=== PATIENT | male | born 1980 | race Hispanic/Latino ===

== ENCOUNTER 2025-08-22 10:30 | Emergency (ER) | payer OTHER ==
[~2025-08-22] VITALS: Ht 182.9 cm; Wt 123.9 kg
[2025-08-22] MEDS: CLINDAMYCIN IVPB 600MG/50ML 50 ML IV STA (11:09)
[2025-08-22 11:16] LABS: IMMATURE GRANULOCYTE ABSOLUTE 0.05 K/uL (0-1); NUCLEATED RED BLOOD CELLS 0.0 % (0.0-0.19); PLATELET COUNT (AUTO) 298 K/uL (130-400); RED BLOOD CELL COUNT(AUTO) 5.27 MIL/uL (4.50-6.20); RED CELL DISTRIBUTION WIDTH 12.7 % (11.0-15.5); WHITE BLOOD COUNT (AUTO) 10.9 K/uL (4.8-10.8)
[2025-08-22 11:30] LABS: CREATININE 0.8 mg/dL (0.5-1.3); GLOMERULAR FILTR. RATE CALC 111.0 mL/min (>90); SODIUM SERUM 131.0 mmol/L (136-145); UREA NITROGEN, BLOOD 14.0 mg/dL (7-18)
[2025-08-22 12:09] LABS: GLUCOSE,RANDOM 427.0 mg/dL (70-105)
--- NOTE | 2025-08-22 13:11 | HMCIMG ---
EXAM: US examination, left groin /back thigh. CLINICAL HISTORY: r/o abscess TECHNIQUE: Real-time ultrasound examination performed with image documentation. COMPARISON: None provided. FINDINGS: 14 x 8 x 12 mm and 9 x 6 x 10 mm possible abscess with adjacent edema. IMPRESSION: 1. Two small possible abscesses in the left groin/back thigh, measuring 14 x 8 x 12 mm and 9 x 6 x 10 mm, with adjacent edema. /Sophie
[2025-08-22] MEDS ORDERED: CLIN-141 PO (13:24)
--- NOTE | 2025-08-22 13:26 | ERN ---
ED Note History of Present Illness Stated Complaint: ABSCESS Chief Complaint: Abscess Time Seen by MD: 10:33 Time Seen by Midlevel: 10:36 Dictation: 24-year-old male with a history of diabetes coming in with complaints of a small abscess on the left posterior thigh. Patient states this has been going on for three days. Denies having any fever, nausea or vomiting. Denies any insect bite. Allergies: Coded Allergies: No Known Drug Allergies (Unverified Allergy, Unknown, 08/22/25) Past Medical History Past Medical History: Diabetes-Type II Surgical History: Other Surgical History Other: RT KNEE SX Review of System Dictation Constitutional: Negative for fever,chills, and weight loss Eyes: Negative for injury, pain,redness, and discharge ENT: Negative for injury,pain or swelling Cardiovascular: Negative for chest pain, palpitations, and edema Respiratory: Negative for shortness of breath, cough, and wheezing, Abdomen/GI: Negative for abdominal pain, nausea, vomiting, diarrhea, and constipation Back: Negative for injury and pain : Negative for injury, bleeding and discharge MS/Extremity: Negative for injury and deformity Skin: Negative for rash, and discoloration abscess to the left posterior thigh Neuro: Negative for headache, weakness, numbness, tingling, and seizure Psych: Negative for suicide ideation, homicidal ideation, and hallucinations Review of Systems: was completed Initial Vital Sign VS Vital Signs Date Time Temp Pulse Resp B/P (MAP) Pulse Ox O2 Delivery O2 Flow Rate FiO2 08/22/25 10:32 98.2 114 18 124/88 98 Room Air 0 08/22/25 12:10 21 Physical Exam Dictation General: awake, alert, NAD Head/Face: Normocephalic, atraumatic Eyes: PERRL, EOMI, vision at baseline ENT: oral cavity clear, TMs clear, no signs of infection Neck: Trachea midline, supple, no nuchal rigidity Cardiovascular: RRR, normal S1/S2, No MRGs, no JVD Respiratory: CTAB, no respiratory distress, No rales or wheezes Abdomen: Soft, non-tender, non-distended, normal bowel sounds, no guarding or rebound. Skin: Warm, dry, normal turgor, no rash MS/Extremity: Pulses equal, no cyanosis, neurovascular intact, FROM normal there is a area of induration with no fluctuance, no streaking to the left posterior thigh, close to the groin area. Testicles are within normal range. There is no open wound, drainage. Neuro: COAx4, GCS 15, strength 5/5, CN 2-12 intact, normal cerebellar exam, normal gait, Psych: Normal behavior, mood, and affect normal Results (Laboratory/Radiology) Laboratory/Radiology Laboratory Tests Test 08/22/25 11:08 08/22/25 12:39 08/22/25 13:04 White Blood Count 10.9 K/uL (4.8-10.8) H Red Blood Count 5.27 MIL/uL (4.50-6.20) Hemoglobin 16.4 g/dL (14.0-18.0) Hematocrit 46.9 % (42-54) Mean Corpuscular Volume 89.0 fL (79-99) Mean Corpuscular Hemoglobin 31.1 pg (27.0-33.0) Mean Corpuscular Hemoglobin Concent 35.0 g/dL (32.0-36.0) Red Cell Distribution Width 12.7 % (11.0-15.5) Platelet Count 298 K/uL (130-400) Mean Platelet Volume 9.4 fL (7.5-10.5) Immature Granulocyte % (Auto) 0.5 % (0-1) Neutrophils (%) (Auto) 80.0 % (40.0-77.0) H Lymphocytes (%) (Auto) 10.9 % (21.0-51.0) L Monocytes (%) (Auto) 7.6 % (3.0-13.0) Eosinophils (%) (Auto) 0.6 % (0.0-8.0) Basophils (%) (Auto) 0.4 % (0.0-5.0) Neutrophils # (Auto) 8.7 K/uL (1.8-7.7) H Lymphocytes # (Auto) 1.2 K/uL (1.0-4.8) Monocytes # (Auto) 0.8 K/uL (0.1-1.0) Eosinophils # (Auto) 0.07 K/uL (0.00-0.70) Basophils # (Auto) 0.04 K/uL (0.00-0.20) Absolute Immature Granulocyte (auto 0.05 K/uL (0-1) Nucleated Red Blood Cells 0.0 % (0.0-0.19) Sodium Level 131 mmol/L (136-145) L Potassium Level 3.9 mmol/L (3.5-5.1) Chloride Level 97 mmol/L (101-111) L Carbon Dioxide Level 27 mmol/L (21-32) Blood Urea Nitrogen 14 mg/dL (7-18) Creatinine 0.8 mg/dL (0.5-1.3) Glomerular Filtration Rate Calc 111 mL/min (>90) Random Glucose 427 mg/dL (70-105) *H Total Calcium 8.7 mg/dL (8.5-10.1) Whole Blood Glucose 387 MG/DL (70-110) H 298 MG/DL (70-110) H Labs Reviewed?: Yes Ultrasound Comment: [facility] [id number] [place] [id number] IMAGING REPORT Signed PATIENT: ERMIAS RANKIN MR#: [id number] : 1980 SEX: M AGE: 44 LOCATION: [facility] ORDER 1051 STATUS: REG REPORT#: [id number] SERVICE 1049 REASON: r/o abscess ORDERING PHYSICIAN: JOVANNI TRINIDAD CNP PROCEDURE: SOFT GROIN - US SOFT TISSUE GROIN EXAM: US examination, left groin /back thigh. CLINICAL HISTORY: r/o abscess TECHNIQUE: Real-time ultrasound examination performed with image documentation. COMPARISON: None provided. FINDINGS: 14 x 8 x 12 mm and 9 x 6 x 10 mm possible abscess with adjacent edema. IMPRESSION: 1. Two small possible abscesses in the left groin/back thigh, measuring 14 x 8 x 12 mm and 9 x 6 x 10 mm, with adjacent edema. /[place] DICTATED BY: EDUARDA JURADO Jr., MD DATE: 08/22/251409 ELECTRONICALLY SIGNED BY: EDUARDA JURADO Jr., MD DATE: 08/22/251409 ED Course ED Course Orders Procedure Category Date Status Time Us Soft Tissue Groin US 08/22/25 Resulted 10:49 Cbc With Differential LAB 08/22/25 Complete 10:49 Basic Metabolic Panel LAB 08/22/25 Complete 10:49 Clindamycin Ivpb PHA 08/22/25 Complete 600mg/50ml (Cleocin 10:49 0.9%Nacl 1000ml (Ns PHA 08/22/25 Complete 1000ml) 12:15 Insulin Regular, PHA 08/22/25 Complete Human 3ml (Humulin R 12:30 Insulin Regular, PHA 08/22/25 Complete Human 3ml (Humulin R 13:00 Current Medications Medications (Trade) Dose Ordered Sig/Neal Route PRN Reason Start Time Stop Time Status Last Admin Dose Admin Clindamycin HCl/ Dextrose 50 ml @ 100 mls/hr Q8H STAT IV 08/22/25 10:49 08/22/25 11:18 DC 08/22/25 11:09 Insulin Human Regular (humuLIN R 100 UNIT/ML 3ML) 9 unit ONCE ONCE IV 08/22/25 13:00 08/22/25 13:01 DC 08/22/25 12:36 Insulin Human Regular (humuLIN R 100 UNIT/ML 3ML) 9 unit ONCE ONCE SQ 08/22/25 12:30 08/22/25 12:33 DC Sodium Chloride 1,000 ml @ 1,000 mls/hr Q1H STAT IV 08/22/25 12:15 08/22/25 13:14 DC Vital Signs Date Time Temp Pulse Resp B/P (MAP) Pulse Ox O2 Delivery O2 Flow Rate FiO2 08/22/25 12:10 111 18 138/84 97 Room Air* 0 21 08/22/25 10:32 98.2 114 18 124/88 98 Room Air 0 Medical Decision Making MDM MDM: 24-year-old male with a history of diabetes coming in with complaints of a small abscess on the left posterior thigh. Patient states this has been going on for three days. Denies having any fever, nausea or vomiting. Denies any insect bite.CBC shows white count of 10, no anemia, no thrombocytopenia. Your so they corrected sodium of 136, no kidney injury. Serum CO2 normal. Blood sugar is 427. After fluids, and 9 units of insulin IV patient's last blood sugar is 298. Ultrasound shows two small possible abscess in the left groin/back of the thigh measuring 14 x 8 x 12 mm in 9 x 6 by could not mm with the edema. Patient received 600 mg of IV clindamycin. Admission for IV antibiotics and further evaluation. Patient states he would rather go home and follow up with the his primary doctor tomorrow. Patient will be discharged with the clindamycin antibiotics. Educated on strict return precautions and educated on possible complications if patient were to be discharged. Patient verbalized understanding but so decided to follow up, states he will keep a close eye and we will return if area worsens. Differential diagnosis: Cellulitis, abscess, folliculitis Rationale: Tests considered and ordered secondary to shared decision making include: Previous outside records reviewed: Old ER visits. Risk of complication and/or morbidity or mortality of patient management: None Medications-Per medication reconciliation Need for hospitalization: Patient does not meet criteria for hospitalization. Need for emergency major/minor surgery: No There are no social concerns with this patient. Prescription drug management Prescriptions will include symptomatic care Patient's prior external medical records from other ER visits were reviewed by me as indicated. Prior testing and results from previous visits were reviewed. Prior tests were taken into account with medical decision making and resource utilization, independent historian/historians were used to obtain complete medical history. I independently interpreted the test that were performed, results were reviewed by me and considered findings on radiology if ordered. Medical management and examination interpretation discussions were had by me with other qualified healthcare professionals as indicated for the patient's care. DX & DISP Disposition: Discharge Departure Impression: Primary Impression: Thigh abscess Condition: Stable Scripts Clindamycin HCl (Clindamycin HCl) 300 Mg Capsule 1 CAP PO BID for 7 Days, #14 CAP 0 Refills Prov: JOVANNI TRINIDAD CNP 08/22/25 Additional Instructions: Apply warm compresses to the area to help with the pain and swelling. Follow up with your primary doctor tomorrow. Take antibiotics as prescribed. Return to the hospital if you develop any worsening redness, pain, fevers. Referrals: MARISA GRUBER MD (PCP) Time of Disposition: 13:24 I have reviewed the case, and I agree with, Diagnosis and Plan JOVANNI TRINIDAD CNP Aug 22, 2025 13:25
[2025-08-22] MEDS: 0.9%NACL 1000ML 1,000 ML IV STA (13:37)
[2025-08-22 14:41] VITALS: BP 130/79; PULSE 98; RESP 18; TEMP 98.2; O2SAT 97
== END 2025-08-22 14:33 | disposition home or self-care (01) ==
LOC: EDH 10:30
DX: L02.416 Cutaneous abscess of left lower limb (principal); E11.9 Type 2 diabetes mellitus without complications
CPT/HCPCS: 99285; 96365; 96361; 96375; 80048; 85025; 82948 ×2; 36415; 76882; J1815; J7030; J3490; 99284